=== PATIENT | male | born 1950 | race Caucasian/White ===

== ENCOUNTER 2016-12-15 07:32 | Observation (INO) | payer OTHER ==
[2016-11-30 15:52] VITALS: BMI 35.0
[~2016-12-15] VITALS: Ht 182.9 cm; Wt 118.2 kg
[2016-12-15] VITALS (12 sets, daily range): BP systolic 119–145; BP diastolic 71–86; PULSE 63–95; TEMP 36.5–37; O2SAT 94–97; Ht 182.9 cm; Wt 118.2 kg
[~2016-12-15 07:32] MED LIST: AMLO2.5T PO; CEFAZOLIN 2000 MG/60 ML D5W IV SCH; CHOL2000 PO; CeleBREX 200 MG CAP PO SCH; FERR27TA5 PO; FURO-85 PO; GLUCTAB7 PEG; LACTATED RINGER'S 1000ML 1,000 ML IV SCH; LISINOPRIL HCTZ PO; MULT-506 PO; OXAP600T PO; POTA10CA28 PO; PREGABALIN 75 MG CAP PO SCH; SIMV20TA2 PO; VGR50 PO; VITA10004 PO
[2016-12-15] MEDS ORDERED: ACET-1256 PO (08:23)
[2016-12-15] MEDS ORDERED: GLUC10007 PO (08:23)
[2016-12-15] MEDS ORDERED: MIDAZOLAM HCL 1 MG/ML 2ML VIAL ONE (08:35)
[2016-12-15] MEDS ORDERED: FENTANYL CITRATE INJ 50 MCG/1 ML 2 ML VIAL ONE ×4 (08:36→11:06)
[2016-12-15] MEDS ORDERED: BACITRACIN 50000 UNIT VIAL ONE (08:57)
[2016-12-15] MEDS ORDERED: THROMBIN 5000 UNITS KIT ONE (08:57)
--- NOTE | 2016-12-15 09:08 | History and Physical ---
History & Physical Date Dec 15, 2016. Chief Complaint neck and left arm pain History of Present Illness The patient is a 66 year old male with complaints of above who developed increased weakness and numbness despite initial conservative treatment. He denies R arm symptoms. He has an MRI that shows stenosis C4-5 and 5-6 that is foraminal. no myelomalacia of cord seen. he denies incontinence and balance issues. He was evaluated by cardiology and cleared for surgery. Past Medical/Surgical History tongue surgery hypokalemia appy hx pneumonia HTN dyslipidemia Additional History Hepatic Disease: No Endocrine Disorder: No Kidney Disease: No Hypertension: Yes Heart Disease: No Bleeding Tendencies: No Infectious Diseases: No Allergies Coded Allergies: No Known Allergies (Unverified , 12/15/16) Home Medications Scheduled Acetaminophen (Tylenol), 2 TAB PO Q6 Amlodipine (Norvasc), 2.5 MG PO QAM Cholecalciferol (Vitamin D3), 1 CAP PO BID Ferrous Gluconate (Iron), 27 MG PO Q2D Furosemide (Lasix), 20 MG PO PRN Glucosamine Sulfate (Glucosamine), 1,000 MG PO BID Multivitamin (Multivitamin), 1 TAB PO QAM Oxaprozin (Daypro), 600 MG PO BID Potassium Chloride (Micro-K Ext Rel), 10 MEQ PO BID Sildenafil Citrate (Viagra), 50 MG PO PRN Simvastatin (Zocor), 20 MG PO QPM Vitamin E (Vitamin E), 1,000 UNITS PO QPM [Lisinopril Hctz], 1 TAB PO QAM Physical Examination Skin: warm/dry Eyes: normal inspection, sclerae normal ENT: normal ENT inspection Head: normocephalic, atraumatic Neck: supple, trachea midline Respiratory/Chest: lungs clear, no respiratory distress Cardiovascular: regular rate, rhythm Abdomen / GI: non tender Back: normal inspection Extremities: normal inspection, normal range of motion Neurologic/Psych: no motor/sensory deficits (except for weakness in L deltoid and positive spurlings to left), alert, normal reflexes, oriented x 3 Diagnosis C4-6 stenosis Plan of Treatment [id number]
[2016-12-15] MEDS ORDERED: HYDROmorphone INJ 0.5 MG/0.5 ML SYR IV PRN ×2 (09:15→11:30)
[2016-12-15] MEDS ORDERED: ATROPINE SULFATE 0.1 MG/ML 5ML SYR IV PRN (09:15)
[2016-12-15] MEDS ORDERED: ONDANSETRON INJ 2 MG/ML 2 ML VIAL IV PRN ×2 (09:15→11:30)
[2016-12-15] MEDS ORDERED: FENTANYL CITRATE INJ 50 MCG/1 ML 2 ML VIAL IV PRN (09:15)
[2016-12-15] MEDS ORDERED: EpHEDrine SULFATE INJ 50 MG/ML AMP IV PRN (09:15)
[2016-12-15] MEDS ORDERED: HYDROmorphone INJ 2 MG/ML SYR/VIAL ONE ×2 (09:42→11:06)
[2016-12-15] MEDS ORDERED: LIDOCAINE HCL 2% 2 ML VIAL (20MG/ML) ONE (11:08)
[2016-12-15] MEDS ORDERED: ESMOLOL HCL 10 MG/ML 10 ML VIAL ONE (11:08)
[2016-12-15] MEDS ORDERED: NEOSTIGMINE METHYLSULFATE 1 MG/ML 10ML VIAL ONE (11:08)
[2016-12-15] MEDS ORDERED: ONDANSETRON INJ 2 MG/ML 2 ML VIAL ONE (11:08)
[2016-12-15] MEDS ORDERED: PROPOFOL IV EMULSION 10 MG/ML 20 ML VIAL IV ONE (11:08)
[2016-12-15] MEDS ORDERED: LABETALOL HCL IV 5 MG/ML 20ML IV ONE (11:08)
[2016-12-15] MEDS ORDERED: GLYCOPYRROLATE INJ 0.2 MG/ML VIAL ONE (11:08)
[2016-12-15] MEDS ORDERED: DEXAMETHASONE SOD INJ 4 MG/ML VIAL ONE (11:08)
[2016-12-15] MEDS ORDERED: ROCURONIUM BROMIDE 10 MG/ML 5 ML VIAL ONE (11:08)
[2016-12-15] MEDS ORDERED: FLOSEAL HEMOSTATIC MATRIX 5ML TOP ONE (11:18)
[2016-12-15] MEDS ORDERED: RACEPINEPHRINE 2.25% NEBU SOLN 0.5 ML VIAL INH PRN (11:30)
[2016-12-15] MEDS ORDERED: NALOXONE HCL 0.4 MG/1 ML VIAL/CARP IV PRN (11:30)
[2016-12-15] MEDS ORDERED: ACETAMINOPHEN IV 100 ML IV PRN (11:30)
[2016-12-15] MEDS ORDERED: OXYCODONE HCL IR 5 MG TAB (IMMEDIATE RELEASE) PO PRN (11:30)
[2016-12-15] MEDS ORDERED: LORAZEPAM 0.5 MG TAB PO PRN (11:30)
[2016-12-15] MEDS ORDERED: DEXAMETHASONE INJ 8 MG in SYRINGE 0 ML IV PRN (11:30)
[2016-12-15] MEDS ORDERED: LORAZEPAM INJ 0.5 MG in SYRINGE 0.75 ML IV PRN (11:30)
--- NOTE | 2016-12-15 11:30 | [facility] Post Operative Brief Note ---
Immediate Operative Summary Operative Date Dec 15, 2016. Pre-Operative Diagnosis Cervical Spinal Stenosis C4-C6 Post-Operative Diagnosis Same as preoperative. Procedure(s) Performed C4-C6 Anterior Cervical Discectomy and Fusion, with Allograft Surgeon Dinkey Engineer Surgeon(s) None Estimated Blood Loss 10mL Findings dict Specimens None per surgeon.
--- NOTE | 2016-12-15 12:03 | DIAGNOSTIC IMAGING REPORT ---
Cervical spine CERVICAL 2 OR 3 VIEWS CLINICAL HISTORY: C4-C6 ACDF intraoperative cervical fusion TECHNIQUE: Image intensifier COMPARISON STUDY: FINDINGS: Findings intraoperatively consistent anterior fusion from C4 through C6. IMPRESSION: Anterior fusion from C4 through C6. Electronically signed by: Davin Ponce M.D. 12/15/2016 12:01 PM Dictated Date/Time: 12/15/2016 12:00 PM
[2016-12-15] MEDS ORDERED: IV FLUIDS COMPLETED PRN (13:00)
--- NOTE | 2016-12-15 13:45 | Anesthesiology Progress Note ---
Anesthesia Post Op Note Date & Time Dec 15, 2016 at 13:45 Vital Signs Pain Intensity: 0.0 Vital Signs Past 12 Hours Date Time Temp Pulse Resp B/P Pulse Ox O2 Delivery O2 Flow Rate FiO2 12/15/16 13:30 78 16 125/71 96 Nasal Cannula 4.0 Humidified Oxygen 12/15/16 13:00 37.0 73 16 128/86 96 Nasal Cannula 4.0 Humidified Oxygen 12/15/16 13:00 96 Nasal Cannula 4.0 Humidified Oxygen 12/15/16 13:00 96 Nasal Cannula 4.0 12/15/16 13:00 37.0 73 16 128/76 96 Nasal Cannula 4.0 Humidified Oxygen 12/15/16 12:45 36.8 65 16 131/72 99 Nasal Cannula 4 12/15/16 12:35 68 16 104/78 98 Nasal Cannula 4 12/15/16 12:25 62 16 122/77 98 Nasal Cannula 4 12/15/16 12:15 59 16 137/73 98 Nasal Cannula 4 12/15/16 12:05 61 16 129/74 98 Nasal Cannula 4 12/15/16 11:55 61 16 135/73 100 Mask 10 12/15/16 11:45 66 16 134/79 100 Mask 10 12/15/16 11:39 36.6 72 16 152/80 96 Mask 10 12/15/16 08:10 36.9 63 20 144/84 96 Room Air Notes Mental Status: alert / awake / arousable, participated in evaluation Pt Amnestic to Procedure: Yes Nausea / Vomiting: adequately controlled Pain: adequately controlled Airway Patency, RR, SpO2: stable & adequate BP & HR: stable & adequate Hydration State: stable & adequate Anesthetic Complications: no major complications apparent
[2016-12-15] MEDS: SODIUM CHLORIDE 0.9% 1000ML 1,000 ML IV SCH (14:23)
[2016-12-15] MEDS: CHECK SCOPOLAMINE PATCH PLACEMENT SCH (15:43)
[2016-12-15] MEDS: DEXAMETHASONE INJ 6 MG in SYRINGE 0 ML IV SCH (15:44)
[2016-12-15] MEDS ORDERED: SCOPOLAMINE 1.5 MG TDSY TD SCH (16:00)
[2016-12-15] MEDS: CEFAZOLIN IV 1,000 MG in DEXTROSE 5% 50ML 50 ML IV SCH (17:58)
[2016-12-15] MEDS ORDERED: SIMVASTATIN 20 MG TAB PO SCH (21:00)
[2016-12-15] MEDS: POTASSIUM CHLORIDE 10 MEQ TABCR PO SCH (21:13)
[2016-12-16] VITALS (9 sets, daily range): BP systolic 114–135; BP diastolic 70–77; PULSE 73–86; TEMP 36.8–37; O2SAT 94–98
[2016-12-16] MEDS: SODIUM CHLORIDE 0.9% 1000ML 1,000 ML IV SCH (00:04)
[2016-12-16] MEDS: DEXAMETHASONE INJ 6 MG in SYRINGE 0 ML IV SCH ×2 (00:05→08:55)
[2016-12-16] MEDS: CHECK SCOPOLAMINE PATCH PLACEMENT SCH ×2 (00:07→08:00)
[2016-12-16] MEDS: CEFAZOLIN IV 1,000 MG in DEXTROSE 5% 50ML 50 ML IV SCH ×2 (01:37→10:21)
[2016-12-16] MEDS ORDERED: OXYC-57 PO (07:28)
--- NOTE | 2016-12-16 07:29 | Discharge Instructions ---
Discharge Instructions Date of Service Dec 16, 2016. Admission Reason for Admission: Cervical Spinal Stenosis Discharge Discharge Diagnosis / Problem: same Discharge Goals Goal(s): Decrease discomfort Activity Recommendations Activity Limitations: per Instructions/Follow-up section Lifting Limitations: no more than 10 pounds Exercise/Sports Limitations: gradually increase as tolerated Shower/Bathe: may shower/bathe in 3 days . Instructions / Follow-Up Instructions / Follow-Up [facility] as schediled Current Hospital Diet regular Discharge Diet Recommended Diet: Regular Diet Procedures Procedures Performed: C4-C6 Anterior Cervical Discectomy and Fusion, with Allograft Pending Studies Studies pending at discharge: no Medical Emergencies . Who to Call and When: Medical Emergencies: If at any time you feel your situation is an emergency, please call 911 immediately. . Non-Emergent Contact Non-Emergency issues call your: Surgeon . "Provider Documentation" section prepared by Bora Dickey. VTE Core Measure Inpt VTE Proph given/why not?: Liam Koch, SCD's [place] Drug Monitoring Program Search Results: patient reviewed within database, no issues identified
[2016-12-16] MEDS: POTASSIUM CHLORIDE 10 MEQ TABCR PO SCH (08:54)
[2016-12-16] MEDS ORDERED: AMLODIPINE BESYLATE 5 MG TAB PO SCH (09:00)
--- NOTE | 2016-12-16 09:52 | Discharge Summary ---
Orthopedic Discharge Summary Admission Date/Reason Dec 15, 2016 at 11:32 Cervical Spinal Stenosis. Discharge Date/Disposition Dec 16, 2016 Home Diagnosis Principal Diagnosis: cervical stenosis/DDD Procedure(s) Performed ACDF C4-6 Medication Reconciliation New Medications: Oxycodone/Acetaminophen 5MG/325MG (Percocet 5MG/325MG) Tab 1 TABLET PO Q6H PRN for Pain, #30 TAB Continued Medications: Acetaminophen (Tylenol) 500 Mg Tab 2 TAB PO Q6 for 2 Days, #20 TAB 3 Refills Amlodipine (Norvasc) 2.5 Mg Tab 2.5 MG PO QAM, TAB Cholecalciferol (Vitamin D3) 2,000 Unit Cap 1 CAP PO BID for 90 Days, #180 CAP 3 Refills Ferrous Gluconate (Iron) 27 Mg Tab 27 MG PO Q2D PM Furosemide (Lasix) 20 Mg Tab 20 MG PO PRN, TAB Glucosamine Sulfate (Glucosamine) 1,000 Mg Tab 1000 MG PO BID, TAB Multivitamin (Multivitamin) Tab 1 TAB PO QAM, TAB Potassium Chloride (Micro-K Ext Rel) 10 Meq Capcr 10 MEQ PO BID, CAP X 5 DAYS Sildenafil Citrate (Viagra) 50 Mg Tab 50 MG PO PRN, TAB Simvastatin (Zocor) 20 Mg Tab 20 MG PO QPM, TAB Vitamin E (Vitamin E) 1,000 Unit Cap 1000 UNITS PO QPM [Lisinopril Hctz] () 1 TAB PO QAM 20/12.5 MG Discontinued Medications: Oxaprozin (Daypro) 600 Mg Tab 600 MG PO BID, TAB Admission Physical Exam As per Admitting History & Physical. Hospital Course Admitted for elective surgery. The patient did well with no complications, tolerated diet, mobilized independently, remained HD stable, and was discharged in good condition with resolution of preop symptoms. Discharge Instructions Please refer to the electronic Patient Visit Report (Discharge Instructions) for additional information.
--- NOTE | 2016-12-16 14:40 | Orthopedic Progress Note ---
Orthopedic Progress Note Date of Service Dec 16, 2016. Subjective Post OP Day: 1 Reports: feeling well, pain controlled w PO medications, Denies: SOB, calf pain , chest pain, complaints, light headedness, nausea / vomiting, using LEATHER COATER Objective calves soft nontender, N/V intact, dressing C/D/I, A&O x3, hemovac drainage Date Time Temp Pulse Resp B/P Pulse Ox O2 Delivery O2 Flow Rate FiO2 12/16/16 11:23 82 12 97 Room Air 12/16/16 10:28 36.8 80 16 94 Room Air 12/16/16 08:16 80 14 94 Room Air 12/16/16 08:16 94 Room Air 12/16/16 07:30 Room Air 12/16/16 07:25 36.8 73 16 134/74 97 Nasal Cannula 4.0 80 12/16/16 05:30 36.8 76 16 135/77 98 Nasal Cannula 4.0 12/16/16 04:00 86 16 98 Nasal Cannula 3.5 12/16/16 03:30 37.0 78 16 124/75 97 Nasal Cannula 4.0 12/16/16 01:30 36.9 74 16 114/70 97 Nasal Cannula 4.0 Humidified Air 12/16/16 00:00 80 16 97 Nasal Cannula 4.0 12/15/16 23:30 Nasal Cannula 4.0 Humidified Air 12/15/16 23:30 36.8 80 16 119/71 97 Nasal Cannula 4.0 Humidified Air 12/15/16 21:20 36.6 83 16 137/76 96 Nasal Cannula 4.0 12/15/16 19:40 86 14 97 Nasal Cannula 4.0 12/15/16 19:27 36.5 90 16 145/85 95 Nasal Cannula 4.0 Humidified Oxygen 12/15/16 17:30 36.7 88 18 123/77 95 Nasal Cannula 4.0 Humidified Oxygen 12/15/16 16:00 Nasal Cannula 4.0 Humidified Oxygen 12/15/16 15:34 36.7 93 18 131/79 96 Nasal Cannula 4.0 Humidified Oxygen 12/15/16 15:27 95 14 96 Nasal Cannula 4.0 Assessment & Plan Assessment: doing great, jaclyn diet, desires d/c, drain slowed, no swelling Discharge Planning Discharge Planning: home
--- NOTE | 2016-12-22 14:30 | Discharge Summary ---
Orthopedic Discharge Summary Admission Date/Reason Dec 15, 2016 at 11:32 Cervical Spinal Stenosis. Discharge Date/Disposition Dec 16, 2016 Home Diagnosis Principal Diagnosis: cervical stenosis/DDD Procedure(s) Performed ACDF C4-6 Medication Reconciliation New Medications: Oxycodone/Acetaminophen 5MG/325MG (Percocet 5MG/325MG) Tab 1 TABLET PO Q6H PRN for Pain, #30 TAB Continued Medications: Acetaminophen (Tylenol) 500 Mg Tab 2 TAB PO Q6 for 2 Days, #20 TAB 3 Refills Amlodipine (Norvasc) 2.5 Mg Tab 2.5 MG PO QAM, TAB Cholecalciferol (Vitamin D3) 2,000 Unit Cap 1 CAP PO BID for 90 Days, #180 CAP 3 Refills Ferrous Gluconate (Iron) 27 Mg Tab 27 MG PO Q2D PM Furosemide (Lasix) 20 Mg Tab 20 MG PO PRN, TAB Glucosamine Sulfate (Glucosamine) 1,000 Mg Tab 1000 MG PO BID, TAB Multivitamin (Multivitamin) Tab 1 TAB PO QAM, TAB Potassium Chloride (Micro-K Ext Rel) 10 Meq Capcr 10 MEQ PO BID, CAP X 5 DAYS Sildenafil Citrate (Viagra) 50 Mg Tab 50 MG PO PRN, TAB Simvastatin (Zocor) 20 Mg Tab 20 MG PO QPM, TAB Vitamin E (Vitamin E) 1,000 Unit Cap 1000 UNITS PO QPM [Lisinopril Hctz] () 1 TAB PO QAM 20/12.5 MG Discontinued Medications: Oxaprozin (Daypro) 600 Mg Tab 600 MG PO BID, TAB Admission Physical Exam As per Admitting History & Physical. Hospital Course He was admitted for elective cervical surgery. He tolerated procedure well, was stable postop, tolerated his diet, ambulated independently and was discharged POD 1 in stable condition Discharge Instructions Please refer to the electronic Patient Visit Report (Discharge Instructions) for additional information.
--- NOTE | 2016-12-22 14:52 | OPERATIVE REPORT ---
DATE OF OPERATION: 12/15/2016 PREOPERATIVE DIAGNOSES: 1. C4-5 and C5-6 cervical stenosis. 2. C4-5 and C5-6 degenerative disc disease. POSTOPERATIVE DIAGNOSIS: Same. PROCEDURES: 1. Anterior cervical discectomy and fusion and application of PEEK intervertebral spacer with local autograft and DBM putty C4-5. 2. Anterior cervical discectomy and fusion and application of PEEK intervertebral spacer with local autograft and DBM putty C5-6. 3. Anterior cervical instrumentation C4-5 and C5-6 with LDR anterior cervical plates. SURGEON: Dr. Dickey. MACHINING TECHNICIAN: OR staff. ANESTHESIA: General endotracheal anesthesia. ESTIMATED BLOOD LOSS: 10 mL. OPERATION AND FINDINGS: PROCEDURE: After identification of patient and operative level, he was brought to the OR where he underwent induction of general anesthesia. He was then positioned supine on [facility]ordon OR table with Constantine horseshoe head coach. Arms were tucked at the sides and well padded. Shoulders were taped distally and anterior neck was sterilely prepped and draped in usual fashion. Antibiotics were administered. Time-out was performed. Level was confirmed and transverse skin incision was made at the level of the cricoid cartilage on the right side of the neck. I divided the platysma in line with the incision and performed routine anterior cervical exposure medial to sternocleidomastoid and carotid sheath. After identification of presumptive disc spaces I confirmed level with fluoroscopy and marked level with electrocautery. I mobilized longus colli from body of C4-C6 and applied a self-retaining cervical retractor deep to the longus colli. I put Argonne pins in the bodies of C4 and C6, applied distraction across the pins and then proceeded to do complete discectomies at C4-5 and C5-6 after reconfirmation of level. I took down the posterior annulus, posterior osteophytes with a mariam and then removed the PLL and did foraminotomies as necessary so I could pass a probe into the neural foramina bilaterally at each level. This process was done of both at C4-5 and C5-6. After completion of discectomy at each level I determined graft size with trial sizers. I then decorticated the endplates with a high speed bur in preparation for introduction of PEEK cages. The PEEK cages were filled with local bone and DBM putty and then tamped into position at C4-5 and C5-6. This was confirmed with fluoroscopy and then Argonne distraction was released and the pins were removed, bone wax over the holes. I then placed the LDR blade plates into the vertebral body at C4-5 and C5-6. Blades were fully deployed and had good purchase. I then obtained final x-rays, irrigated with bacitracin solution, confirmed hemostasis, applied FloSeal as necessary and then closed in layered fashion over a small round drain. All sponge and needle counts correct at the end of the case. I attest to the content of the Intraoperative Record and any orders documented therein. Any exceptio ns are noted below.
== END 2016-12-16 12:00 | disposition home or self-care (01) ==
LOC: ENRESERVTM → ENRESERVDT → C.ACU 07:32 → C.3E 11:32
PROVIDERS: ADMIT Orthopaedic Surgery Orthopaedic Surgery of the Spine; ATTEND Orthopaedic Surgery Orthopaedic Surgery of the Spine
DX: M48.02 Spinal stenosis, cervical region (principal); M50.321 Other cervical disc degeneration at C4-C5 level; M50.322 Other cervical disc degeneration at C5-C6 level; E78.5 Hyperlipidemia, unspecified; I10 Essential (primary) hypertension; Z87.01 Personal history of pneumonia (recurrent); Z90.49 Acquired absence of other specified parts of digestive tract